=== PATIENT | female | born 1975 | race Caucasian/White ===

== ENCOUNTER 2016-05-02 14:41 | Emergency (ER) | payer MEDICAID, OTHER ==
[~2016-05-02 14:41] MED LIST: CALCTAB43 PO; CIPR500T3 PO; CLAR1TAB2 PO; COLA100C PO; FLUO40CA PO; IBUP400T OR; LIPI10TA PO; MOTR200T44 PO; NEUR600T PO; PERCOCET PO; PROA1AER INH; PROAAER IN; RANI15TA PO; ROXI1TAB2 PO; SING5CHW PO; TRAZ150T14 PO; TYLE325T5 PO; VITA50003 PO; ZANA4CAP OR; dulara INH
--- NOTE | 2016-05-02 16:01 | REP ---
Five view left knee series, 05/02/2016: Indication: Left knee pain. FINDINGS: There is no evidence of fracture, subluxation or dislocation within the left knee. The joint spaces are well maintained. There is no evidence of joint effusion. IMPRESSION: Unremarkable exam. Signed by Gia Clements MD 05/02/2016 09:03 P
[2016-05-02] MEDS ORDERED: NORCO, ANEXSIA 5/325MG TABLET (HYDROcodone/ACETAMINOPHEN) As Ordered ONE (17:58)
--- NOTE | 2016-05-02 18:42 | EDDOCDS ---
Nurse's Notes [facility] Name: Lisa García Age: 40 yrs Sex: Female : 1975 Arrival Date: 05/02/2016 Time: 14:41 Bed TR7 Private MD: Sandee Bhatia NP Diagnosis: Sprain of unspecified site of left knee Presentation: 05/02 14:56 Presenting complaint: Patient states: "I did something to my knee a few days ago. It jc4 feels like someone is ripping my knee and it perry and hurts to walk on". Complains of left knee pain. Adult Sepsis Screening: The patient does not have new or worsening altered mentation. Patient's respiratory rate is less than 22. Systolic blood pressure is greater than 100. Patient has a qSOFA score of 0- Negative Sepsis Screen. Suicide/Homicide risk assessment- the patient denies having any suicidal and/or homicidal ideations and does not present with any other emotional, behavioral or mental health complaints. Status: Patient is not a guest service aide or dependent. Transition of care: patient was not received from another setting of care. 14:56 Acuity: RICK Level 4 jc4 14:56 Method Of Arrival: Walkin/Carried/Asstd jc4 Triage Assessment: 14:59 General: Appears in no apparent distress. Pain: Pain currently is 10 out of 10 on a jc4 pain scale. HIV screening NA for this visit Offered previously. 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 Asmanex HFA 100 mcg/actuation inhalation HFAA 2 puffs 2 times per day (Last dose: 05/01/2016) 2. Flonase 50 mcg/actuation Nasal spsn 1 spray once daily (Last dose: 05/02/2016 05:30) 3. ProAir HFA 90 mcg/actuation inhalation HFAA 2 puffs every 6 hours as needed (Last dose: Unknown) 4. Zyrtec 10 mg Oral tab 1 tab once daily (Last dose: 05/01/2016) 5. Vitamin D Oral 29334 unit weekly (Last dose: 04/28/2016) 6. luvox 200 mg nightly (Last dose: 05/01/2016) - PMHx: Anxiety; Asthma; Depression; OCD; - PSHx: Appendectomy; Tubal ligation; Hysterectomy; Oophorectomy- bilateral; - Social history: Smoking status: Patient uses tobacco products, light tobacco smoker. No barriers to communication noted, The patient speaks fluent Trinidadian. - Family history: Not pertinent. - : The pt / caregiver states he / she is not on anticoagulants. Home medication list is obtained from the patient. - Exposure Risk Screening:: None identified. Screenin:13 Screening information is obtained from the patient. Fall risk: At risk due to injury. ms18 Assistance ADL's: requires no assistance with activities of daily living. Abuse/DV Screen: The patient / caregiver reports he/she is: not in a situation that causes fear, pain or injury. Nutritional screening: No deficits noted. Advance Directives: There is no living will. home support is adequate. Assessment: 15:30 General: Appears in no apparent distress, Behavior is cooperative, pleasant. jc4 Neurological: Level of Consciousness is awake, alert, Oriented to person, place, time. Respiratory: Airway is patent Respiratory effort is even, unlabored, Respiratory pattern is regular, symmetrical. Derm: Skin is pink, warm & dry. Musculoskeletal: Reports pain in left knee. 17:21 General: Pt ambulatory to Room 26 with limping gait. jc4 18:13 General: Appears in no apparent distress, obese, Behavior is appropriate for age, ms18 cooperative. Pain: Location: left knee Pain currently is 9 out of 10 on a pain scale. Neurological: No deficits noted. Respiratory: No deficits noted. Derm: Skin is pink, warm & dry. normal. Vital Signs: 14:43 BP 131 / 83; Pulse 93; Resp 18 S; Temp 98.6(O); Pulse Ox 97% on R/A; Weight 102.06 kg gr2 (R); Height 5 ft. 6 in. (167.64 cm) (R); Pain 8/10; 16:04 BP 119 / 62; Pulse 85; Resp 20; Temp 98.3(TE); Pulse Ox 97% on R/A; Pain 10/10; ar3 18:13 BP 123 / 63 RA Sitting (auto/lg); Pulse 79; Resp 20; Temp 98.5; Pulse Ox 99% on R/A; bnb Pain 9/10; 14:43 Body Mass Index 36.32 (102.06 kg, 167.64 cm) gr2 Vitals: 14:43 Log In Time: May 02, 2016 at 14:43. gr2 ED Course: 14:42 Patient visited by Eduardo Castro. gr2 14:42 Sandee Bhatia is Private Physician. gr2 14:42 Patient moved to Waiting gr2 14:44 Patient visited by Eduardo Castro. gr2 14:44 Patient moved to Pre RCE gr2 14:57 Triage Initiated jc4 16:06 Patient visited by Ivania Gupta PCA. ar3 16:40 Knee, Complete Returned. EDMS 17:15 Patient moved to PR jc4 17:16 Jo Ann Story [facility]-C [facility]. ef1 17:16 Kaylen Geiger MD is Attending Physician. ef1 17:16 Patient visited by Jo Ann Story PA-C. ef1 17:37 [facility]. ef1 17:39 [facility] Payment Agreement was scanned into [employer] and attached to record. gjb 18:13 The patient / caregiver is instructed regarding the plan of care and ED course. Patient ms18 has correct armband on for positive identification. Property sent home with patient. :Personal belongings accompany Pt. 18:13 No IV's were initiated during this patient's visit. No procedures done that require ms18 assistance. Crutch training done. Knee immobilizer applied on left knee. Patient with positive distal sensation and brisk distal capillary refill after application. 18:14 Patient visited by Clare Key PCA. bnb 18:19 Patient moved to TR7 bnb Administered Medications: 18:00 Drug: oxyCODONE-acetaminophen 1 tabs [oxycodone-acetaminophen 5 mg-325 mg tablet (1 ms18 tabs)] Route: PO; Order Results: Radiology Order: Knee, Complete Test: Knee, Complete REASON FOR EXAMINATION: left knee pain; Five view left knee series, 05/02/2016:; ; Indication: Left knee pain.; ; ; FINDINGS:; There is no evidence of fracture, subluxation or dislocation within the left; knee. The joint spaces are well maintained. There is no evidence of joint; effusion.; ; IMPRESSION:; Unremarkable exam.; ; ; ; ; ; Unreviewed; Outcome: 17:37 Discharge ordered by Provider. ef1 18:13 Discharge Assessment: Patient awake, alert and oriented x 3. No cognitive and/or ms18 functional deficits noted. Patient verbalized understanding of disposition instructions. patient administered narcotics - yes. Pt provided with safe discharge. The following High Risk Discharge criteria are identified: None. Discharged to home ambulatory, with crutches. Condition: good Condition: stable Condition: improved. Discharge instructions given to patient, Instructed on discharge instructions, follow up and referral plans. medication usage, no driving heavy equipment, Demonstrated understanding of instructions, medications, Pt was receptive of discharge instructions/ teaching. Prescriptions given X 2. No special radiology studies were completed. 18:41 Patient left the ED. ms18 Signatures: Dispatcher [employer] EDMS Jo Ann Story, FADUMO THORNE ef1 Ivania Gupta, GANG HEAD SAW OPERATOR GANG HEAD SAW OPERATOR ar3 Martha Wise RN RN jc4 Eduardo Castro gr2 Caridad Massey RN RN ms18 Mariama Torres Brittney, GANG HEAD SAW OPERATOR GANG HEAD SAW OPERATOR bnb JAZZY
--- NOTE | 2016-05-02 18:42 | EDDOCDS ---
Physician Documentation [facility] Name: Lisa García Age: 40 yrs Sex: Female : 1975 Arrival Date: 05/02/2016 Time: 14:41 Bed TR7 Private MD: Sandee Bhatia NP Disposition: 05/02/16 17:37 Discharged to Home/Self Care. Impression: Sprain of unspecified site of left knee. - Condition is Stable. - Discharge Instructions: Knee Sprain, [id number]. - Prescriptions for Mobic 7.5 mg Oral Tablet - take 1 tablet by ORAL route once daily take with food; 20 tablet. Percocet 5- 325 mg Oral Tablet - take 1 tablet by ORAL route every 6 hours As needed MDD: 4 tabs; 10 tablet. - Medication Reconciliation, Local Pharmacy Hours form. - Follow up: [facility]; When: 1 - 2 days; Reason: Further diagnostic work-up, Recheck today's complaints, Continuance of care. Follow up: Emergency Department; Reason: Worsening of conditions. - Problem is new. - Symptoms have improved. Historical: - Allergies: PENICILLINS; - Home Meds: 1. Asmanex HFA 100 mcg/actuation inhalation HFAA 2 puffs 2 times per day (Last dose: 05/01/2016) 2. Flonase 50 mcg/actuation Nasal spsn 1 spray once daily (Last dose: 05/02/2016 05:30) 3. ProAir HFA 90 mcg/actuation inhalation HFAA 2 puffs every 6 hours as needed (Last dose: Unknown) 4. Zyrtec 10 mg Oral tab 1 tab once daily (Last dose: 05/01/2016) 5. Vitamin D Oral 16784 unit weekly (Last dose: 04/28/2016) 6. luvox 200 mg nightly (Last dose: 05/01/2016) - PMHx: Anxiety; Asthma; Depression; OCD; - PSHx: Appendectomy; Tubal ligation; Hysterectomy; Oophorectomy- bilateral; - Social history: Smoking status: Patient uses tobacco products, light tobacco smoker. No barriers to communication noted, The patient speaks fluent Macedonian. - Family history: Not pertinent. - : The pt / caregiver states he / she is not on anticoagulants. Home medication list is obtained from the patient. - Exposure Risk Screening:: None identified. 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 6 in. (167.64 cm) (R); Pain 8/10; 16:04 BP 119 / 62; Pulse 85; Resp 20; Temp 98.3(TE); Pulse Ox 97% on R/A; Pain 10/10; ar3 18:13 BP 123 / 63 RA Sitting (auto/lg); Pulse 79; Resp 20; Temp 98.5; Pulse Ox 99% on R/A; bnb Pain 9/10; 14:43 Body Mass Index 36.32 (102.06 kg, 167.64 cm) gr2 Procedures: 17:34 Fracture care/splinting: Splint applied to left knee using knee immobilizer, applied by ef1 tech. Examined by me, post splint application: neurovascular intact, 2+ distal pulses palpable, brisk capillary refill noted, Patient tolerated well. MDM: 15:00 Knee, Complete Ordered. EDMS 17:34 Knee Immobilizer ordered. ef1 17:34 Crutches ordered. ef1 17:34 Ice Pack ordered. ef1 17:34 oxyCODONE-acetaminophen 5 mg-325 mg 1 tabs PO once ordered. ef1 17:39 Financial registration complete. gjb 17:39 [facility] Payment Agreement was scanned into [employer] and attached to record. gjb Administered Medications: 18:00 Drug: oxyCODONE-acetaminophen 1 tabs [oxycodone-acetaminophen 5 mg-325 mg tablet (1 ms18 tabs)] Route: PO; Signatures: Dispatcher [employer] EDMS Jo Ann Story PA-C PA-C ef1 Martha Wise RN RN jc4 Caridad Massey RN RN ms18 Mariama Torres The chart was reviewed and I authenticate all verbal orders and agree with the evaluation and treatment provided.Attachments: 17:39 [facility] Payment Agreement gjalesha MTDD
--- NOTE | 2016-05-04 19:42 | EDDOCDS ---
Physician Documentation [facility] Name: Lisa García Age: 40 yrs Sex: Female : 1975 Arrival Date: 05/02/2016 Time: 14:41 Bed TR7 Private MD: Sandee Bhatia NP Disposition: 05/02/16 17:37 Discharged to Home/Self Care. Impression: Sprain of unspecified site of left knee. - Condition is Stable. - Discharge Instructions: Knee Sprain, [id number]. - Prescriptions for Mobic 7.5 mg Oral Tablet - take 1 tablet by ORAL route once daily take with food; 20 tablet. Percocet 5- 325 mg Oral Tablet - take 1 tablet by ORAL route every 6 hours As needed MDD: 4 tabs; 10 tablet. - Medication Reconciliation, Local Pharmacy Hours form. - Follow up: [facility]; When: 1 - 2 days; Reason: Further diagnostic work-up, Recheck today's complaints, Continuance of care. Follow up: Emergency Department; Reason: Worsening of conditions. - Problem is new. - Symptoms have improved. Historical: - Allergies: PENICILLINS; - Home Meds: 1. Asmanex HFA 100 mcg/actuation inhalation HFAA 2 puffs 2 times per day (Last dose: 05/01/2016) 2. Flonase 50 mcg/actuation Nasal spsn 1 spray once daily (Last dose: 05/02/2016 05:30) 3. ProAir HFA 90 mcg/actuation inhalation HFAA 2 puffs every 6 hours as needed (Last dose: Unknown) 4. Zyrtec 10 mg Oral tab 1 tab once daily (Last dose: 05/01/2016) 5. Vitamin D Oral 54006 unit weekly (Last dose: 04/28/2016) 6. luvox 200 mg nightly (Last dose: 05/01/2016) - PMHx: Anxiety; Asthma; Depression; OCD; - PSHx: Appendectomy; Tubal ligation; Hysterectomy; Oophorectomy- bilateral; - Social history: Smoking status: Patient uses tobacco products, light tobacco smoker. No barriers to communication noted, The patient speaks fluent Greenlandic. - Family history: Not pertinent. - : The pt / caregiver states he / she is not on anticoagulants. Home medication list is obtained from the patient. - Exposure Risk Screening:: None identified. 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 6 in. (167.64 cm) (R); Pain 8/10; 16:04 BP 119 / 62; Pulse 85; Resp 20; Temp 98.3(TE); Pulse Ox 97% on R/A; Pain 10/10; ar3 18:13 BP 123 / 63 RA Sitting (auto/lg); Pulse 79; Resp 20; Temp 98.5; Pulse Ox 99% on R/A; bnb Pain 9/10; 14:43 Body Mass Index 36.32 (102.06 kg, 167.64 cm) gr2 Procedures: 17:34 Fracture care/splinting: Splint applied to left knee using knee immobilizer, applied by ef1 tech. Examined by me, post splint application: neurovascular intact, 2+ distal pulses palpable, brisk capillary refill noted, Patient tolerated well. MDM: 15:00 Knee, Complete Ordered. EDMS 17:34 Knee Immobilizer ordered. ef1 17:34 Crutches ordered. ef1 17:34 Ice Pack ordered. ef1 17:34 oxyCODONE-acetaminophen 5 mg-325 mg 1 tabs PO once ordered. formerly [facility] 17:39 Financial registration complete. [facility] 17:39 [facility] Payment Agreement was scanned into [email or web address] and attached to record. [facility] 05/03 09:11 T-Sheet-- Draft Copy was scanned into [email or web address] and attached to record. gb Administered Medications: 05/02 18:00 Drug: oxyCODONE-acetaminophen 1 tabs [oxycodone-acetaminophen 5 mg-325 mg tablet (1 ms18 tabs)] Route: PO; Signatures: Dispatcher [employer] EDMS Raissa Wells, Reg Reg gb Jo Ann Story, JUANC PARico ef1 Martha Wise RN RN jc4 Caridad Massey RN RN ms18 Mariama Torres [facility] The chart was reviewed and I authenticate all verbal orders and agree with the evaluation and treatment provided.Attachments: 17:39 [facility] Payment Agreement gjb 05/03 09:11 T-Sheet-- Draft Copy gb Chart Complete MTDD
--- NOTE | 2016-05-04 19:42 | EDDOCDS ---
Nurse's Notes [facility] Name: Lisa García Age: 40 yrs Sex: Female : 1975 Arrival Date: 05/02/2016 Time: 14:41 Bed TR7 Private MD: Sandee Bhatia NP Diagnosis: Sprain of unspecified site of left knee Presentation: 05/02 14:56 Presenting complaint: Patient states: "I did something to my knee a few days ago. It jc4 feels like someone is ripping my knee and it perry and hurts to walk on". Complains of left knee pain. Adult Sepsis Screening: The patient does not have new or worsening altered mentation. Patient's respiratory rate is less than 22. Systolic blood pressure is greater than 100. Patient has a qSOFA score of 0- Negative Sepsis Screen. Suicide/Homicide risk assessment- the patient denies having any suicidal and/or homicidal ideations and does not present with any other emotional, behavioral or mental health complaints. Status: Patient is not a district manager postal service or dependent. Transition of care: patient was not received from another setting of care. 14:56 Acuity: RICK Level 4 jc4 14:56 Method Of Arrival: Walkin/Carried/Asstd jc4 Triage Assessment: 14:59 General: Appears in no apparent distress. Pain: Pain currently is 10 out of 10 on a jc4 pain scale. HIV screening NA for this visit Offered previously. 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 Asmanex HFA 100 mcg/actuation inhalation HFAA 2 puffs 2 times per day (Last dose: 05/01/2016) 2. Flonase 50 mcg/actuation Nasal spsn 1 spray once daily (Last dose: 05/02/2016 05:30) 3. ProAir HFA 90 mcg/actuation inhalation HFAA 2 puffs every 6 hours as needed (Last dose: Unknown) 4. Zyrtec 10 mg Oral tab 1 tab once daily (Last dose: 05/01/2016) 5. Vitamin D Oral 16225 unit weekly (Last dose: 04/28/2016) 6. luvox 200 mg nightly (Last dose: 05/01/2016) - PMHx: Anxiety; Asthma; Depression; OCD; - PSHx: Appendectomy; Tubal ligation; Hysterectomy; Oophorectomy- bilateral; - Social history: Smoking status: Patient uses tobacco products, light tobacco smoker. No barriers to communication noted, The patient speaks fluent Finnish. - Family history: Not pertinent. - : The pt / caregiver states he / she is not on anticoagulants. Home medication list is obtained from the patient. - Exposure Risk Screening:: None identified. Screenin:13 Screening information is obtained from the patient. Fall risk: At risk due to injury. ms18 Assistance ADL's: requires no assistance with activities of daily living. Abuse/DV Screen: The patient / caregiver reports he/she is: not in a situation that causes fear, pain or injury. Nutritional screening: No deficits noted. Advance Directives: There is no living will. home support is adequate. Assessment: 15:30 General: Appears in no apparent distress, Behavior is cooperative, pleasant. jc4 Neurological: Level of Consciousness is awake, alert, Oriented to person, place, time. Respiratory: Airway is patent Respiratory effort is even, unlabored, Respiratory pattern is regular, symmetrical. Derm: Skin is pink, warm & dry. Musculoskeletal: Reports pain in left knee. 17:21 General: Pt ambulatory to Room 26 with limping gait. jc4 18:13 General: Appears in no apparent distress, obese, Behavior is appropriate for age, ms18 cooperative. Pain: Location: left knee Pain currently is 9 out of 10 on a pain scale. Neurological: No deficits noted. Respiratory: No deficits noted. Derm: Skin is pink, warm & dry. normal. Vital Signs: 14:43 BP 131 / 83; Pulse 93; Resp 18 S; Temp 98.6(O); Pulse Ox 97% on R/A; Weight 102.06 kg gr2 (R); Height 5 ft. 6 in. (167.64 cm) (R); Pain 8/10; 16:04 BP 119 / 62; Pulse 85; Resp 20; Temp 98.3(TE); Pulse Ox 97% on R/A; Pain 10/10; ar3 18:13 BP 123 / 63 RA Sitting (auto/lg); Pulse 79; Resp 20; Temp 98.5; Pulse Ox 99% on R/A; bnb Pain 9/10; 14:43 Body Mass Index 36.32 (102.06 kg, 167.64 cm) gr2 Vitals: 14:43 Log In Time: May 02, 2016 at 14:43. gr2 ED Course: 14:42 Patient visited by Eduardo Castro. gr2 14:42 Sandee Bhatia is Private Physician. gr2 14:42 Patient moved to Waiting gr2 14:44 Patient visited by Eduardo Castro. gr2 14:44 Patient moved to Pre RCE gr2 14:57 Triage Initiated jc4 16:06 Patient visited by Ivania Gupta PCA. ar3 16:40 Knee, Complete Returned. EDMS 17:15 Patient moved to PR jc4 17:16 Jo Ann Story PA-C is PHCP. ef1 17:16 Kaylen Geiger MD is Attending Physician. ef1 17:16 Patient visited by Jo Ann Story PA-C. ef1 17:37 [facility]. ef1 17:39 [facility] Payment Agreement was scanned into [employer] and attached to record. gjb 18:13 The patient / caregiver is instructed regarding the plan of care and ED course. Patient ms18 has correct armband on for positive identification. Property sent home with patient. :Personal belongings accompany Pt. 18:13 No IV's were initiated during this patient's visit. No procedures done that require ms18 assistance. Crutch training done. Knee immobilizer applied on left knee. Patient with positive distal sensation and brisk distal capillary refill after application. 18:14 Patient visited by Clare Key PCA. bnb 18:19 Patient moved to [facility] bn 05/03 09:11 T-Sheet-- Draft Copy was scanned into [employer] and attached to record. gb Administered Medications: 05/02 18:00 Drug: oxyCODONE-acetaminophen 1 tabs [oxycodone-acetaminophen 5 mg-325 mg tablet (1 ms18 tabs)] Route: PO; Order Results: Radiology Order: Knee, Complete Test: Knee, Complete REASON FOR EXAMINATION: left knee pain; Five view left knee series, 05/02/2016:; ; Indication: Left knee pain.; ; FINDINGS:; ; There is no evidence of fracture, subluxation or dislocation within the left; knee. The joint spaces are well maintained. There is no evidence of joint; effusion.; ; IMPRESSION:; ; Unremarkable exam.; ; ; Signed by; Gia Clements MD 05/02/2016 09:03 P; Outcome: 17:37 Discharge ordered by Provider. ef1 18:13 Discharge Assessment: Patient awake, alert and oriented x 3. No cognitive and/or ms18 functional deficits noted. Patient verbalized understanding of disposition instructions. patient administered narcotics - yes. Pt provided with safe discharge. The following High Risk Discharge criteria are identified: None. Discharged to home ambulatory, with crutches. Condition: good Condition: stable Condition: improved. Discharge instructions given to patient, Instructed on discharge instructions, follow up and referral plans. medication usage, no driving heavy equipment, Demonstrated understanding of instructions, medications, Pt was receptive of discharge instructions/ teaching. Prescriptions given X 2. No special radiology studies were completed. 18:41 Patient left the ED. ms18 Signatures: Dispatcher [employer] EDMS Raissa Wells, Mnig Reg gb Jo Ann Story, PA-C PA-C ef1 Ivania Gupta, JET MECHANIC JET MECHANIC ar3 Martha Wise, RN RN jc4 Eduardo Castro gr2 Caridad Massey,DELPHINE RN ms18 Mariama Torres Brittney, JET MECHANIC JET MECHANIC bnb Chart Complete MTDD
--- NOTE | 2016-05-04 19:42 | EDDOCDS ---
Physician Documentation [facility] Name: Lisa García Age: 40 yrs Sex: Female : 1975 Arrival Date: 05/02/2016 Time: 14:41 Bed TR7 Private MD: Sandee Bhatia NP Disposition: 05/02/16 17:37 Discharged to Home/Self Care. Impression: Sprain of unspecified site of left knee. - Condition is Stable. - Discharge Instructions: Knee Sprain, [id number]. - Prescriptions for Mobic 7.5 mg Oral Tablet - take 1 tablet by ORAL route once daily take with food; 20 tablet. Percocet 5- 325 mg Oral Tablet - take 1 tablet by ORAL route every 6 hours As needed MDD: 4 tabs; 10 tablet. - Medication Reconciliation, Local Pharmacy Hours form. - Follow up: [facility]; When: 1 - 2 days; Reason: Further diagnostic work-up, Recheck today's complaints, Continuance of care. Follow up: Emergency Department; Reason: Worsening of conditions. - Problem is new. - Symptoms have improved. Historical: - Allergies: PENICILLINS; - Home Meds: 1. Asmanex HFA 100 mcg/actuation inhalation HFAA 2 puffs 2 times per day (Last dose: 05/01/2016) 2. Flonase 50 mcg/actuation Nasal spsn 1 spray once daily (Last dose: 05/02/2016 05:30) 3. ProAir HFA 90 mcg/actuation inhalation HFAA 2 puffs every 6 hours as needed (Last dose: Unknown) 4. Zyrtec 10 mg Oral tab 1 tab once daily (Last dose: 05/01/2016) 5. Vitamin D Oral 05996 unit weekly (Last dose: 04/28/2016) 6. luvox 200 mg nightly (Last dose: 05/01/2016) - PMHx: Anxiety; Asthma; Depression; OCD; - PSHx: Appendectomy; Tubal ligation; Hysterectomy; Oophorectomy- bilateral; - Social history: Smoking status: Patient uses tobacco products, light tobacco smoker. No barriers to communication noted, The patient speaks fluent [place]. - Family history: Not pertinent. - : The pt / caregiver states he / she is not on anticoagulants. Home medication list is obtained from the patient. - Exposure Risk Screening:: None identified. 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 6 in. (167.64 cm) (R); Pain 8/10; 16:04 BP 119 / 62; Pulse 85; Resp 20; Temp 98.3(TE); Pulse Ox 97% on R/A; Pain 10/10; ar3 18:13 BP 123 / 63 RA Sitting (auto/lg); Pulse 79; Resp 20; Temp 98.5; Pulse Ox 99% on R/A; bnb Pain 9/10; 14:43 Body Mass Index 36.32 (102.06 kg, 167.64 cm) gr2 Procedures: 17:34 Fracture care/splinting: Splint applied to left knee using knee immobilizer, applied by ef1 tech. Examined by me, post splint application: neurovascular intact, 2+ distal pulses palpable, brisk capillary refill noted, Patient tolerated well. MDM: 15:00 Knee, Complete Ordered. EDMS 17:34 Knee Immobilizer ordered. ef1 17:34 Crutches ordered. ef1 17:34 Ice Pack ordered. ef1 17:34 oxyCODONE-acetaminophen 5 mg-325 mg 1 tabs PO once ordered. [facility] 17:39 Financial registration complete. [facility] 17:39 [facility] Payment Agreement was scanned into [employer] and attached to record. [facility] 05/03 09:11 T-Sheet-- Draft Copy was scanned into [employer] and attached to record. gb Administered Medications: 05/02 18:00 Drug: oxyCODONE-acetaminophen 1 tabs [oxycodone-acetaminophen 5 mg-325 mg tablet (1 ms18 tabs)] Route: PO; Signatures: Dispatcher [employer] EDMS Raissa Wells, Reg Reg gb Jo Ann Story, JUANC PARico ef1 Martha Wise RN RN jc4 Caridad Massey RN RN [id number] Mariama Torres [facility] The chart was reviewed and I authenticate all verbal orders and agree with the evaluation and treatment provided.Attachments: 17:39 [facility] Payment Agreement gjb 05/03 09:11 T-Sheet-- Draft Copy gb Chart Complete MTDD
== END 2016-05-02 18:41 | disposition home or self-care (01) ==
LOC: M ED 14:41
DX: S83.92XA Sprain of unspecified site of left knee, initial encounter (principal); F42.9 Obsessive-compulsive disorder, unspecified; F41.9 Anxiety disorder, unspecified; F32.9 Major depressive disorder, single episode, unspecified; J45.909 Unspecified asthma, uncomplicated; F17.210 Nicotine dependence, cigarettes, uncomplicated; Z88.0 Allergy status to penicillin; Z79.899 Other long term (current) drug therapy; X50.1XXA Overexertion from prolonged static or awkward postures, initial encounter; Y92.019 Unspecified place in single-family (private) house as the place of occurrence of the external cause; Y93.01 Activity, walking, marching and hiking; Y99.9 Unspecified external cause status

== ENCOUNTER → 2016-05-31 | Outpatient (REF) | payer OTHER ==
[2016-05-31 12:55] LABS: FREE T4 0.89 NG/DL (0.76-1.46)
== END | disposition home or self-care (01) ==
LOC: M SFHCPLAZ 08:38
PROVIDERS: ATTEND Nurse Practitioner Family
DX: E66.01 Morbid (severe) obesity due to excess calories (principal); E55.9 Vitamin D deficiency, unspecified

== ENCOUNTER 2016-12-30 03:08 | Emergency (ER) | payer MEDICAID, OTHER, SELFPAY ==
[~2016-12-30] VITALS: Ht 167.6 cm; Wt 80.0 kg
[~2016-12-30 03:08] MED LIST changes: -CALCTAB43 PO; +CALCTAB74 PO; -COLA100C PO; +COLA100C5 PO; -PROA1AER INH; +PROAAER10 INH; -TRAZ150T14 PO; +TRAZ1TAB14 PO; +VITA1CAP40 PO; -VITA50003 PO
[2016-12-30] MEDS ORDERED: ALBU17IN INH (03:24)
[2016-12-30] MEDS ORDERED: ASMA1AER3 IN (03:24)
[2016-12-30] MEDS ORDERED: [UNRECOGNIZED DRUG - OTHER] PO (03:24)
[2016-12-30] MEDS ORDERED: KETOROLAC 60 MG/2 ML VIAL (J1885) IM ONE (05:00)
[2016-12-30] MEDS ORDERED: AZIT-12 PO (06:13)
[2016-12-30] MEDS ORDERED: AZITHROMYCIN 250 MG TAB PO ONE (06:15)
[2016-12-30 06:18] VITALS: BP 121/79
--- NOTE | 2016-12-30 09:42 | REP ---
Clinical: Cough . Comparison: 06/18/2013 . Technique: PA and lateral. Findings: The mediastinum and cardiac silhouette are normal. The lung gramajo are clear and without acute consolidation, effusion, or pneumothorax. The skeletal structures are intact and normal. Impression: 1. No acute cardiopulmonary process. Signed by Dion Conte MD 12/30/2016 08:17 A
== END 2016-12-30 06:19 | disposition home or self-care (01) ==
LOC: M ED 03:08
DX: J20.9 Acute bronchitis, unspecified (principal); J45.909 Unspecified asthma, uncomplicated; F17.210 Nicotine dependence, cigarettes, uncomplicated; Z79.899 Other long term (current) drug therapy; J30.89 Other allergic rhinitis; Z88.0 Allergy status to penicillin; L23.1 Allergic contact dermatitis due to adhesives
CPT/HCPCS: 71020; 96372; 99282; J1885

== ENCOUNTER → 2017-01-03 | Outpatient (REF) | payer OTHER ==
[~2017-01-03] MED LIST changes: +ALBU17IN INH; +ASMA1AER3 IN; +AZIT-12 PO; +[UNRECOGNIZED DRUG - OTHER] PO
[2017-01-03 12:20] LABS: BASO % 0.4 % (0.0-1.0); EOS # 0.2 K/mm3 (0.0-0.50); EOS % 2.4 % (0.0-3.0); LARGE UNSTAINED CELL # 0.2 K/mm3 (0.0-0.4); LARGE UNSTAINED CELL % 1.9 % (0.0-4.0); LYMPH # 2.3 K/mm3 (1.5-4.5); LYMPH % 23.8 % (24.0-44.0); MEAN CORPUSCULAR HEMOGLOBIN 30.6 pg (27.0-33.0); MEAN CORPUSCULAR HGB CONC 33.7 g/dl (32.0-36.5); MEAN CORPUSCULAR VOLUME 90.8 fl (80.0-96.0); MONO # 0.4 K/mm3 (0.0-0.8); MONO % 4.4 % (0.0-5.0); NEUTROPHILS # 6.5 K/mm3 (1.8-7.7); NEUTROPHILS % 67.1 % (36.0-66.0); PLATELET COUNT, AUTOMATED 334 k/mm3 (150-450); RED CELL DISTRIBUTION WIDTH 13.4 % (11.5-14.5); WHITE BLOOD COUNT 9.7 K/mm3 (4.0-10.0)
== END ==
LOC: M SFHCPLAZ 10:05
PROVIDERS: ATTEND Physician Assistant Medical
DX: R06.02 Shortness of breath (principal)

== ENCOUNTER 2017-03-27 10:55 | Emergency (ER) | payer OTHER ==
[~2017-03-27] VITALS: Ht 167.6 cm; Wt 100.0 kg
[2017-03-27 10:56] VITALS: BP 134/73
--- NOTE | 2017-03-27 12:40 | REP ---
Left knee six views: Comparison is 05/02/2016. Left knee six views : There is no fracture or dislocation. Mineralization and joint spaces are normal. There are no calcifications or foreign bodies. Impression: Negative left knee . Signed by River Dixon MD 03/27/2017 12:31 P
[2017-03-27] MEDS ORDERED: IBUP-1022 PO (13:09)
== END 2017-03-27 13:17 | disposition home or self-care (01) ==
LOC: M ED 10:55
DX: S80.02XA Contusion of left knee, initial encounter (principal); W20.8XXA Other cause of strike by thrown, projected or falling object, initial encounter; Y92.9 Unspecified place or not applicable; Y93.9 Activity, unspecified; Y99.0 Civilian activity done for income or pay; G40.909 Epilepsy, unspecified, not intractable, without status epilepticus; J45.909 Unspecified asthma, uncomplicated; G47.30 Sleep apnea, unspecified; F17.200 Nicotine dependence, unspecified, uncomplicated; Z79.899 Other long term (current) drug therapy; Z91.040 Latex allergy status; Z91.89 Other specified personal risk factors, not elsewhere classified; Z88.0 Allergy status to penicillin

== ENCOUNTER 2017-12-10 13:19 | Emergency (ER) | payer OTHER ==
[2017-12-10] MEDS: ACETAMINOPHEN TAB 650MG DOSE (2X325MG) PO (15:03)
== END 2017-12-10 15:48 | disposition home or self-care (01) ==
LOC: M ED 13:19
DX: F45.0 Somatization disorder (principal); F42.9 Obsessive-compulsive disorder, unspecified; F17.210 Nicotine dependence, cigarettes, uncomplicated; Z91.048 Other nonmedicinal substance allergy status; Z91.040 Latex allergy status; Z88.0 Allergy status to penicillin
CPT/HCPCS: 99284

== ENCOUNTER 2017-12-15 16:49 | Emergency (ER) | payer OTHER ==
[2017-12-15] MEDS: NORCO, ANEXSIA 5/325MG TABLET (HYDROcodone/ACETAMINOPHEN) PO (17:28)
== END 2017-12-15 18:01 | disposition home or self-care (01) ==
LOC: M ED 18:01
DX: S60.211A Contusion of right wrist, initial encounter (principal); W22.09XA Striking against other stationary object, initial encounter; Y92.59 Other trade areas as the place of occurrence of the external cause; Y99.0 Civilian activity done for income or pay; K21.9 Gastro-esophageal reflux disease without esophagitis; M51.9 Unspecified thoracic, thoracolumbar and lumbosacral intervertebral disc disorder; F17.210 Nicotine dependence, cigarettes, uncomplicated; Z91.048 Other nonmedicinal substance allergy status; Z91.040 Latex allergy status; Z88.0 Allergy status to penicillin
CPT/HCPCS: 73110

== ENCOUNTER 2018-02-25 05:19 | Emergency (ER) | payer OTHER ==
[~2018-02-25] VITALS: Ht 167.6 cm; Wt 90.9 kg
[~2018-02-25 05:19] MED LIST changes: +IBUP-1022 PO; +IBUP80TA PO; +NORC1TAB4 PO; -VITA1CAP40 PO; +VITA50005 PO
[2018-02-25] MEDS ORDERED: ARNU1INH (05:29)
[2018-02-25] MEDS ORDERED: KETOROLAC 60 MG/2 ML VIAL (J1885) IM ONE (06:00)
[2018-02-25] MEDS ORDERED: METHOCARBAMOL 750 MG TAB PO ONE (06:00)
[2018-02-25] MEDS ORDERED: NAPR-885 PO (06:33)
[2018-02-25] MEDS ORDERED: ROBA500T PO (06:34)
[2018-02-25 06:39] VITALS: BP 132/91
[2018-02-25] MEDS ORDERED: NORCO, ANEXSIA 5/325MG TABLET (HYDROcodone/ACETAMINOPHEN) PO ONE (06:45)
== END 2018-02-25 06:46 | disposition home or self-care (01) ==
LOC: M ED 05:19
DX: S29.002A Unspecified injury of muscle and tendon of back wall of thorax, initial encounter (principal); V40.5XXA Car driver injured in collision with pedestrian or animal in traffic accident, initial encounter; Y92.410 Unspecified street and highway as the place of occurrence of the external cause; F33.9 Major depressive disorder, recurrent, unspecified; F41.9 Anxiety disorder, unspecified; G47.33 Obstructive sleep apnea (adult) (pediatric); F42.9 Obsessive-compulsive disorder, unspecified; K21.9 Gastro-esophageal reflux disease without esophagitis; G43.909 Migraine, unspecified, not intractable, without status migrainosus; Z88.0 Allergy status to penicillin; Z91.040 Latex allergy status; Z91.048 Other nonmedicinal substance allergy status; J30.89 Other allergic rhinitis; F17.210 Nicotine dependence, cigarettes, uncomplicated
CPT/HCPCS: 96372; 99283; J1885

== ENCOUNTER 2018-06-09 09:49 | Emergency (ER) | payer OTHER ==
[~2018-06-09] VITALS: Ht 167.6 cm; Wt 86.4 kg
[~2018-06-09 09:49] MED LIST changes: +ARNU1INH; +NAPR-885 PO; +ROBA500T PO
[2018-06-09] MEDS ORDERED: IBUP-1022 PO (09:56)
[2018-06-09] MEDS ORDERED: NORCO, ANEXSIA 5/325MG TABLET (HYDROcodone/ACETAMINOPHEN) PO ONE (10:45)
--- NOTE | 2018-06-09 11:27 | REP ---
Right wrist four views : There is no fracture or dislocation. Mineralization and joint spaces are normal. There are no calcifications or foreign bodies. Impression: Negative right wrist . Electronically Signed by River Dixon MD 06/09/2018 11:18 A
--- NOTE | 2018-06-09 11:28 | REP ---
Right hand four views : There is no fracture or dislocation. Mineralization and joint spaces are normal. There are no calcifications or foreign bodies. Impression: Negative right hand . Electronically Signed by River Dixon MD 06/09/2018 11:19 A
[2018-06-09 11:47] VITALS: BP 138/80
[2018-06-09 12:05] LABS: HEMATOCRIT 42.2 % (36.0-47.0); HEMOGLOBIN 14.2 g/dl (12.0-15.5); MEAN CORPUSCULAR HEMOGLOBIN 30.7 pg (27.0-33.0); MEAN CORPUSCULAR HGB CONC 33.6 g/dl (32.0-36.5); MEAN CORPUSCULAR VOLUME 91.3 fl (80.0-96.0); PLATELET COUNT, AUTOMATED 335 10^3/uL (150-450); RED BLOOD COUNT 4.62 10^6/uL (4.00-5.40); WHITE BLOOD COUNT 11.3 10^3/uL (4.0-10.0)
[2018-06-09 12:29] LABS: ERYTHROCYTE SEDIMENTATION RATE 20 mm/hr (0-20)
[2018-06-09] MEDS ORDERED: CODE30TA3 PO (13:05)
[2018-06-09] MEDS ORDERED: COLC1TAB13 PO (13:05)
--- NOTE | 2018-06-09 16:41 | REP ---
Right upper extremity deep vein duplex ultrasound: The deep veins demonstrate normal compression, normal Doppler color flow and normal Doppler waveforms with respiration and augmentation from the popliteal vein to the common femoral vein. Impression: There is no right upper extremity deep vein thrombus. Electronically Signed by River Dixon MD 06/09/2018 04:32 P
[2018-06-24] MEDS ORDERED: IBUP-1022 PO (20:20)
[2018-06-24] MEDS ORDERED: HYDR-3363 PO (21:37)
[2018-06-24] MEDS ORDERED: NAPR-50 PO (21:37)
== END 2018-06-09 13:16 | disposition home or self-care (01) ==
LOC: M ED 09:49
DX: M10.9 Gout, unspecified (principal); G43.909 Migraine, unspecified, not intractable, without status migrainosus; J45.909 Unspecified asthma, uncomplicated; G47.30 Sleep apnea, unspecified; K21.9 Gastro-esophageal reflux disease without esophagitis; F41.9 Anxiety disorder, unspecified; F32.9 Major depressive disorder, single episode, unspecified; M54.9 Dorsalgia, unspecified; M51.9 Unspecified thoracic, thoracolumbar and lumbosacral intervertebral disc disorder; F42.9 Obsessive-compulsive disorder, unspecified; J30.2 Other seasonal allergic rhinitis; Z72.0 Tobacco use; Z79.899 Other long term (current) drug therapy; Z88.0 Allergy status to penicillin; Z91.89 Other specified personal risk factors, not elsewhere classified; Z91.040 Latex allergy status

== ENCOUNTER 2018-07-24 22:21 | Emergency (ER) | payer MEDICAID, OTHER, SELFPAY ==
[~2018-07-24] VITALS: Ht 167.6 cm; Wt 86.4 kg
[2018-07-24 22:21] VITALS: BP 131/77
[~2018-07-24 22:21] MED LIST changes: +ACET300T47 PO; +COLC1TAB13 PO; +HYDR-3363 PO; +NAPR-837 PO; -NORC1TAB4 PO; +NORC1TAB7 PO; +OXYC1TAB23 PO; -PERCOCET PO
== END 2018-07-25 00:02 | disposition left against medical advice (07) ==
LOC: M ED 22:21
DX: Z53.21 Procedure and treatment not carried out due to patient leaving prior to being seen by health care provider (principal)

== ENCOUNTER → 2018-07-25 | Outpatient (REF) | payer OTHER ==
[2018-07-25 16:45] LABS: BASO # 0.1 10^3/uL (0.0-0.2); BASO % 0.4 % (0.0-1.0); EOS # 0.2 10^3/uL (0.0-0.50); EOS % 1.6 % (0.0-3.0); HEMOGLOBIN 14.4 g/dl (12.0-15.5); HEMOGLOBIN A1c 5.8 %; LYMPH # 3.6 10^3/uL (1.5-4.5); LYMPH % 26.6 % (24.0-44.0); MEAN CORPUSCULAR HEMOGLOBIN 30.4 pg (27.0-33.0); MEAN CORPUSCULAR VOLUME 94.9 fl (80.0-96.0); MONO # 0.7 10^3/uL (0.0-0.8); NEUTROPHILS # 8.8 10^3/uL (1.8-7.7); PLATELET COUNT, AUTOMATED 372 10^3/uL (150-450); RED BLOOD COUNT 4.74 10^6/uL (4.00-5.40); WHITE BLOOD COUNT 13.4 10^3/uL (4.0-10.0)
[2018-07-25 16:55] LABS: ALBUMIN 3.8 GM/DL (3.2-5.2); ALT/SGPT 17 U/L (12-78); BILIRUBIN,TOTAL 0.3 MG/DL (0.2-1.0); BLOOD UREA NITROGEN 11 MG/DL (7-18); C REACTIVE PROTEIN QUANTITATIV < 0.30 MG/DL (0.00-0.30); CARBON DIOXIDE LEVEL 28 MEQ/L (21-32); CHLORIDE LEVEL 107 MEQ/L (98-107); CREATININE FOR GFR 0.63 MG/DL (0.55-1.30); GLOMERULAR FILTRATION RATE > 60.0 (>58); GLUCOSE, FASTING 75 MG/DL (70-100); POTASSIUM SERUM 4.5 MEQ/L (3.5-5.1); RHEUMATOID FACTOR QUANT < 10.0 IU/ML (<15.0); SODIUM LEVEL 140 MEQ/L (136-145); TOTAL PROTEIN 6.7 GM/DL (6.4-8.2)
[2018-07-25 17:04] LABS: FOLATE 5.8 NG/ML (>5.4); VITAMIN B12 LEVEL 249 PG/ML (247-911)
[2018-07-25 18:37] LABS: ERYTHROCYTE SEDIMENTATION RATE 11 mm/hr (0-20)
[2018-07-29 00:06] LABS: ANA (HEP2) Negative (.)
== END ==
LOC: M SFHCPLAZ 14:39
PROVIDERS: ATTEND Physician Assistant
DX: G62.9 Polyneuropathy, unspecified (principal); L81.9 Disorder of pigmentation, unspecified

== ENCOUNTER 2018-08-15 16:49 | Emergency (ER) | payer MEDICAID, OTHER ==
[~2018-08-15] VITALS: Ht 167.6 cm; Wt 90.9 kg
[2018-08-15] MEDS ORDERED: NAPR-885 PO (16:55)
[2018-08-15] MEDS ORDERED: AMLO5TAB6 (16:55)
[2018-08-15] MEDS ORDERED: KETOROLAC 60 MG/2 ML VIAL (J1885) IM ONE (17:30)
[2018-08-15] MEDS ORDERED: METHOCARBAMOL 500 MG TAB PO ONE (17:30)
--- NOTE | 2018-08-15 18:39 | REP ---
LEFT SHOULDER, THREE VIEWS: HISTORY: Shoulder pain. There is no acute fracture or dislocation. The joint spaces are normal in appearance. IMPRESSION:There is no acute fracture or dislocation. Electronically Signed by Jacob Galarza MD 08/15/2018 06:51 P
--- NOTE | 2018-08-15 18:40 | REP ---
LEFT CLAVICLE, TWO VIEWS: HISTORY: Clavicle pain. There is no acute fracture or dislocation. The joint spaces are normal in appearance. IMPRESSION:There is no acute fracture or dislocation. Electronically Signed by Jacob Galarza MD 08/15/2018 06:51 P
--- NOTE | 2018-08-15 18:41 | REP ---
CERVICAL SPINE, EIGHT VIEWS: HISTORY: Left neck pain. The cervical spine is visualized from C1 to C6 in the lateral radiographs. There is no acute fracture or subluxation. The intervertebral discs are normal in height. The neural foramina are patent. IMPRESSION:There is no acute fracture or subluxation. Electronically Signed by Jacob Galarza MD 08/15/2018 06:51 P
--- NOTE | 2018-08-15 18:42 | REP ---
LUMBAR SPINE, FIVE VIEWS: HISTORY: Left shoulder pain. COMPARISON: 08/08/2011 There is no acute fracture or subluxation. The L3-4 and L4-5 intervertebral discs are decreased in height consistent with disc degeneration. Osteophytes are present on L1 through 4. The facet joints are normal in appearance. IMPRESSION:Degenerative change as described above. Electronically Signed by Jacob Galarza MD 08/15/2018 06:51 P
[2018-08-15] MEDS ORDERED: NAPR-837 PO (18:59)
[2018-08-15] MEDS ORDERED: VOLT1GEL15 TOP (18:59)
[2018-08-15] MEDS ORDERED: ROBA500T PO (18:59)
[2018-08-15 19:10] VITALS: BP 122/73
== END 2018-08-15 19:16 | disposition home or self-care (01) ==
LOC: M ED 16:49
DX: S13.4XXA Sprain of ligaments of cervical spine, initial encounter (principal); M54.5 Low back pain; M51.36 Other intervertebral disc degeneration, lumbar region; V43.52XA Car driver injured in collision with other type car in traffic accident, initial encounter; Y92.9 Unspecified place or not applicable; Y93.9 Activity, unspecified; Y99.9 Unspecified external cause status; J45.909 Unspecified asthma, uncomplicated; J30.2 Other seasonal allergic rhinitis; Z79.899 Other long term (current) drug therapy; Z88.0 Allergy status to penicillin; Z91.89 Other specified personal risk factors, not elsewhere classified; Z91.040 Latex allergy status
CPT/HCPCS: 72052; 72110; 73000; 73030; 96374; 99283; J1885

== ENCOUNTER → 2018-09-27 | Outpatient (REF) | payer OTHER ==
[~2018-09-27] MED LIST changes: +AMLO5TAB6; +VOLT1GEL15 TOP
== END ==
LOC: M SFHCPLAZ 09:41
PROVIDERS: ATTEND Family Medicine
DX: M13.0 Polyarthritis, unspecified (principal)

== ENCOUNTER 2018-11-11 18:12 | Emergency (ER) | payer MEDICAID, OTHER ==
[~2018-11-11] VITALS: Ht 167.6 cm; Wt 90.2 kg
[2018-11-11] MEDS ORDERED: LORA1TAB12 (18:22)
[2018-11-11] MEDS ORDERED: ESCI10TA2 (18:22)
[2018-11-11] MEDS ORDERED: VERA40TA (18:22)
[2018-11-11] MEDS ORDERED: ULTR50TA8 PO (19:59)
[2018-11-11] MEDS ORDERED: NAPR-837 PO (19:59)
[2018-11-11] MEDS ORDERED: ACETAMINOPHEN TAB 650MG DOSE (2X325MG) PO ONE (20:00)
[2018-11-11] MEDS ORDERED: traMADol 50 MG TAB PO ONE (20:00)
[2018-11-11 20:24] VITALS: BP 120/67
--- NOTE | 2018-11-14 16:53 | REP ---
Left knee five views : There is no fracture or dislocation. Mineralization and joint spaces are normal. There are no calcifications or foreign bodies. Impression: Negative left knee . Electronically Signed by River Dixon MD 11/12/2018 07:11 A
== END 2018-11-11 20:30 | disposition home or self-care (01) ==
LOC: M ED 18:12
DX: M23.92 Unspecified internal derangement of left knee (principal); Y99.0 Civilian activity done for income or pay; Z79.51 Long term (current) use of inhaled steroids; Z79.899 Other long term (current) drug therapy; Z88.0 Allergy status to penicillin; Z91.040 Latex allergy status; Z91.048 Other nonmedicinal substance allergy status

== ENCOUNTER 2018-12-23 18:31 | Emergency (ER) | payer MEDICAID, OTHER ==
[~2018-12-23] VITALS: Ht 167.6 cm; Wt 81.8 kg
[~2018-12-23 18:31] MED LIST changes: +ESCI10TA2; +LORA1TAB12 PO; +ULTR50TA8 PO; +VERA40TA
[2018-12-23] MEDS ORDERED: ARNU1INH PO (18:42)
[2018-12-23 19:11] LABS: BASO # 0.1 10^3/uL (0.0-0.2); BASO % 0.5 % (0.0-1.0); EOS # 0.2 10^3/uL (0.0-0.5); HEMATOCRIT 42.4 % (36.0-47.0); HEMOGLOBIN 14.1 g/dl (12.0-15.5); LYMPH % 37.8 % (24.0-44.0); MEAN CORPUSCULAR HEMOGLOBIN 31.4 pg (27.0-33.0); MEAN CORPUSCULAR HGB CONC 33.3 g/dl (32.0-36.5); MEAN CORPUSCULAR VOLUME 94.4 fl (80.0-96.0); MONO # 0.6 10^3/uL (0.0-0.8); MONO % 5.9 % (0.0-5.0); NEUTROPHILS # 5.6 10^3/uL (1.5-8.5); NEUTROPHILS % 53.4 % (36.0-66.0); PLATELET COUNT, AUTOMATED 336 10^3/uL (150-450); RED BLOOD COUNT 4.49 10^6/uL (4.00-5.40); WHITE BLOOD COUNT 10.4 10^3/uL (4.0-10.0)
[2018-12-23] MEDS: MORPHINE 2 MG/ML 1ML SYRINGE (J2270) IV ONE (19:38)
[2018-12-23 19:39] LABS: BLOOD UREA NITROGEN 15 MG/DL (7-18); CALCIUM LEVEL 8.8 MG/DL (8.5-10.1); CARBON DIOXIDE LEVEL 29 MEQ/L (21-32); CHLORIDE LEVEL 108 MEQ/L (98-107); CK-MB VALUE MASS < 1.0 NG/ML (<3.6); CPK CREATINE PHOSPHOKINASE 73 U/L (26-192); GLOMERULAR FILTRATION RATE > 60.0 (>58); GLUCOSE, FASTING 91 MG/DL (70-100); MB/CK RELATIVE INDEX 1.37 (< OR =4); POTASSIUM SERUM 4.3 MEQ/L (3.5-5.1); SODIUM LEVEL 143 MEQ/L (136-145); TROPONIN I < 0.02 NG/ML (< 0.10)
--- NOTE | 2018-12-23 20:44 | ECGEPIP ---
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
[2018-12-23] MEDS: GI COCKTAIL 50ML BTL(HYOSCYAMINE/MAALOX/LIDOCAINE VISCOUS)(1:3:1) PO ONE (22:16)
--- NOTE | 2018-12-23 22:26 | REPVR ---
EXAM: CT Head Without Contrast EXAM DATE/TIME: 12/23/18 (9:34pm) CLINICAL HISTORY: 43 year old female with headache TECHNIQUE: Imaging protocol: Computed tomography of the head without contrast. Radiation optimization: All CT scans at this facility use at least one of these dose optimization techniques: automated exposure control; mA and/or kV adjustment per patient size (includes targeted exams where dose is matched to clinical indication); or iterative reconstruction. COMPARISON: No relevant prior studies available FINDINGS: Brain: Unremarkable. No acute hemorrhage. Unremarkable white matter. No mass effect. Ventricles: Normal. No ventriculomegaly. Bones/joints: Unremarkable. No acute fracture. Sinuses: Visualized sinuses are unremarkable. No air-fluid levels. Mastoid air cells: Visualized mastoid air cells are well aerated. Soft tissues: Unremarkable. IMPRESSION: No acute intracranial pathology is appreciated. Electronically signed by: Dalia Spring On 12/23/2018 22:25:23 PM
[2018-12-23 22:50] LABS: CK-MB VALUE MASS < 1.0 NG/ML (<3.6); CPK CREATINE PHOSPHOKINASE 66 U/L (26-192); MB/CK RELATIVE INDEX 1.52 (< OR =4); TROPONIN I < 0.02 NG/ML (< 0.10)
[2018-12-23 23:30] VITALS: BP 101/57
--- NOTE | 2018-12-24 08:16 | REP ---
PORTABLE CHEST X-RAY, 6:49 p.m. 12/23/2018: HISTORY: Chest pain. Preliminary report is provided by Dr. Conte. The lungs are well inflated and clear. The pleural angles are sharp. Heart size is normal and unchanged from comparison study 06/24/2018. Pulmonary vasculature is not increased. IMPRESSION: No acute disease. Electronically Signed by Dinesh Montano MD 12/24/2018 09:34 A
--- NOTE | 2018-12-25 07:02 | ECGEPIP ---
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
== END 2018-12-23 23:52 | disposition home or self-care (01) ==
LOC: M ED 18:31
DX: R07.89 Other chest pain (principal); R00.2 Palpitations; R51 Headache; F32.9 Major depressive disorder, single episode, unspecified; F42.9 Obsessive-compulsive disorder, unspecified; G47.33 Obstructive sleep apnea (adult) (pediatric); F17.210 Nicotine dependence, cigarettes, uncomplicated; Z88.0 Allergy status to penicillin; Z91.040 Latex allergy status; Z91.048 Other nonmedicinal substance allergy status; Z79.899 Other long term (current) drug therapy
CPT/HCPCS: 36415; 70450; 71045; 80048; 82550; 82553; 85025; 85379; 93005; 93041; 94760; 96374; 99285; J2270

== ENCOUNTER → 2019-04-24 | Outpatient (REF) | payer OTHER ==
[~2019-04-24] MED LIST changes: +ARNU1INH PO
[2019-04-24 12:23] LABS: HEMATOCRIT 45.7 % (36.0-47.0); HEMOGLOBIN 14.9 g/dl (12.0-15.5); MEAN CORPUSCULAR HEMOGLOBIN 30.6 pg (27.0-33.0); MEAN CORPUSCULAR HGB CONC 32.6 g/dl (32.0-36.5); MEAN CORPUSCULAR VOLUME 93.8 fl (80.0-96.0); PLATELET COUNT, AUTOMATED 309 10^3/uL (150-450); RED BLOOD COUNT 4.87 10^6/uL (4.00-5.40); WHITE BLOOD COUNT 12.7 10^3/uL (4.0-10.0)
[2019-04-24 12:29] LABS: ALBUMIN 3.6 GM/DL (3.2-5.2); ALT/SGPT 14 U/L (12-78); BILIRUBIN,TOTAL 0.4 MG/DL (0.2-1.0); BLOOD UREA NITROGEN 13 MG/DL (7-18); CALCIUM LEVEL 9.1 MG/DL (8.5-10.1); CARBON DIOXIDE LEVEL 28 MEQ/L (21-32); CHLORIDE LEVEL 106 MEQ/L (98-107); CREATININE FOR GFR 0.83 MG/DL (0.55-1.30); GLOMERULAR FILTRATION RATE > 60.0 (>58); GLUCOSE, FASTING 88 MG/DL (70-100); POTASSIUM SERUM 4.1 MEQ/L (3.5-5.1); SODIUM LEVEL 141 MEQ/L (136-145)
[2019-04-24 12:34] LABS: INR 0.93; PROTHROMBIN TIME 12.2 SECONDS (11.8-14.0)
[2019-04-24 12:35] LABS: PARTIAL THROMBOPLASTIN TIME 30.3 SECONDS (25.0-38.4)
== END ==
LOC: M SFHCPLAZ 10:21
PROVIDERS: ATTEND Physician Assistant
DX: Z01.818 Encounter for other preprocedural examination (principal)

== ENCOUNTER 2019-09-12 16:02 | Emergency (ER) | payer MEDICAID, OTHER ==
[~2019-09-12 16:02] MED LIST changes: -LORA1TAB12 PO; +LORA1TAB4 PO
[2019-09-12] MEDS ORDERED: tylenol 2 tabs (16:14)
[2019-09-12] MEDS ORDERED: ADVIL (16:14)
[2019-09-12] MEDS ORDERED: PERCOCET 5MG/325MG TAB PO ONE (18:15)
[2019-09-12] MEDS ORDERED: DICL75TA PO (20:33)
[2019-09-12 20:44] VITALS: BP 131/69
[2019-09-12] MEDS ORDERED: MELO15TA28 PO (21:14)
--- NOTE | 2019-09-13 08:46 | REP ---
Left upper extremity duplex venous ultrasound: History: Left arm swelling and pain. Rule out DVT. Preliminary report is provided at the time of the exam by pool WHIPPLE. Findings: The left internal jugular, axillary, brachial, basilic, and cephalic veins are anechoic and compressible in the left upper extremity. Color flow imaging is homogeneous. Spectral Doppler interrogation is unremarkable. There is no evidence of left upper extremity venous thrombosis. Impression: Negative left upper extremity duplex venous ultrasound. No evidence of venous thrombosis. Electronically Signed by Dinesh Montano MD 09/13/2019 08:37 A
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
== END 2019-09-12 20:48 | disposition home or self-care (01) ==
LOC: M ED 16:02
DX: M77.12 Lateral epicondylitis, left elbow (principal); J45.909 Unspecified asthma, uncomplicated; G43.909 Migraine, unspecified, not intractable, without status migrainosus; K21.9 Gastro-esophageal reflux disease without esophagitis; G47.33 Obstructive sleep apnea (adult) (pediatric); F42.9 Obsessive-compulsive disorder, unspecified; F41.9 Anxiety disorder, unspecified; F32.9 Major depressive disorder, single episode, unspecified; F17.210 Nicotine dependence, cigarettes, uncomplicated; Z88.0 Allergy status to penicillin; Z91.040 Latex allergy status; Z91.09 Other allergy status, other than to drugs and biological substances; Z79.899 Other long term (current) drug therapy

== ENCOUNTER → 2019-09-25 | Outpatient (REF) | payer OTHER ==
[~2019-09-25] MED LIST changes: +ADVIL; +DICL75TA PO; +MELO15TA28 PO; +tylenol 2 tabs
[2019-09-25 14:12] LABS: HEMOGLOBIN 15.1 g/dl (12.0-15.5); MEAN CORPUSCULAR HEMOGLOBIN 30.4 pg (27.0-33.0); MEAN CORPUSCULAR HGB CONC 32.8 g/dl (32.0-36.5); MEAN CORPUSCULAR VOLUME 92.7 fl (80.0-96.0); PLATELET COUNT, AUTOMATED 341 10^3/uL (150-450); RED BLOOD COUNT 4.96 10^6/uL (4.00-5.40); WHITE BLOOD COUNT 7.7 10^3/uL (4.0-10.0)
[2019-09-25 14:31] LABS: HEMOGLOBIN A1c 5.6 %
[2019-09-25 14:40] LABS: ERYTHROCYTE SEDIMENTATION RATE 18 mm/hr (0-20)
[2019-09-25 14:48] LABS: ALBUMIN 3.6 GM/DL (3.2-5.2); ALT/SGPT 17 U/L (12-78); BILIRUBIN,TOTAL 0.4 MG/DL (0.2-1.0); BLOOD UREA NITROGEN 14 MG/DL (7-18); C REACTIVE PROTEIN QUANTITATIV 0.35 MG/DL (0.00-0.30); CALCIUM LEVEL 9.2 MG/DL (8.5-10.1); CARBON DIOXIDE LEVEL 27 MEQ/L (21-32); CHLORIDE LEVEL 107 MEQ/L (98-107); CHOLESTEROL LEVEL 239 MG/DL (<200); CHOLESTEROL RISK RATIO 5.975 (<5); CREATININE FOR GFR 0.72 MG/DL (0.55-1.30); FOLATE 5.5 NG/ML; GLOMERULAR FILTRATION RATE > 60.0 (>58); GLUCOSE, FASTING 81 MG/DL (70-100); HDL CHOLESTEROL 40 MG/DL (>40); LDL CHOLESTEROL 174 MG/DL (<100); MAGNESIUM LEVEL 2.4 MG/DL (1.8-2.4); NON-HDL-C 199 MG/DL; POTASSIUM SERUM 4.6 MEQ/L (3.5-5.1); RHEUMATOID FACTOR QUANT < 10.0 IU/ML (<15.0); SODIUM LEVEL 138 MEQ/L (136-145); TOTAL PROTEIN 6.8 GM/DL (6.4-8.2); TRIGLYCERIDES LEVEL 124 MG/DL (<150); VITAMIN B12 LEVEL 255 PG/ML
[2019-09-26 14:08] LABS: ANTINUCLEAR ANTIBODIES DIRECT Negative (Negative)
== END ==
LOC: M SFHCPLAZ 10:26
PROVIDERS: ATTEND Family Medicine
DX: R20.0 Anesthesia of skin (principal); Z13.1 Encounter for screening for diabetes mellitus; Z13.220 Encounter for screening for lipoid disorders

== ENCOUNTER 2020-01-25 16:12 | Emergency (ER) | payer OTHER ==
[~2020-01-25] VITALS: Ht 167.6 cm; Wt 102.0 kg
[~2020-01-25 16:12] MED LIST changes: +AMLO1TAB24; -AMLO5TAB6
[2020-01-25] MEDS ORDERED: ESCI10TA2 (16:20)
[2020-01-25] MEDS ORDERED: IBUP-1022 PO (16:27)
[2020-01-25] MEDS ORDERED: diazePAM 10 MG TAB PO ONE (16:45)
[2020-01-25] MEDS ORDERED: LIDOCAINE 5% (LIDODERM) PATCH TD ONE (16:45)
[2020-01-25] MEDS ORDERED: KETOROLAC 60MG 2ML VIAL IM ONE (16:45)
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
[2020-01-25 18:01] VITALS: BP 137/76
[2020-01-25] MEDS ORDERED: NAPR-837 PO (18:03)
[2020-01-25] MEDS ORDERED: ROBA750T4 PO (18:03)
[2020-01-25] MEDS ORDERED: NORCO 5/325MG TABLET (BULK FOR ED) PO ONE (18:15)
[2020-01-25] MEDS ORDERED: **NOTE PATIENT COMMENT** MISC XX SCH (21:00)
== END 2020-01-25 18:19 | disposition home or self-care (01) ==
LOC: M ED 16:12
DX: S29.012A Strain of muscle and tendon of back wall of thorax, initial encounter (principal); S39.012A Strain of muscle, fascia and tendon of lower back, initial encounter; V49.40XA Driver injured in collision with unspecified motor vehicles in traffic accident, initial encounter; Y92.410 Unspecified street and highway as the place of occurrence of the external cause; F17.200 Nicotine dependence, unspecified, uncomplicated; Z88.0 Allergy status to penicillin; Z91.040 Latex allergy status; Z91.048 Other nonmedicinal substance allergy status; Z79.899 Other long term (current) drug therapy
CPT/HCPCS: 72128; 72131; 96372; 99283; J1885

== ENCOUNTER 2020-11-17 10:57 | Emergency (ER) | payer OTHER ==
[~2020-11-17] VITALS: Ht 167.6 cm; Wt 84.1 kg
[~2020-11-17 10:57] MED LIST changes: +COLC0.6T47 PO; -COLC1TAB13 PO; +ESCI10TA16; -ESCI10TA2; +ROBA750T4 PO
[2020-11-17 12:08] LABS: BASO # 0.1 10^3/uL (0.0-0.2); BASO % 0.5 % (0.0-1.0); EOS # 0.3 10^3/uL (0.0-0.5); EOS % 2.1 % (0.0-3.0); HEMATOCRIT 44.8 % (36.0-47.0); HEMOGLOBIN 14.6 g/dl (12.0-15.5); LYMPH # 3.4 10^3/uL (1.5-5.0); LYMPH % 28.3 % (24.0-44.0); MEAN CORPUSCULAR HEMOGLOBIN 29.7 pg (27.0-33.0); MEAN CORPUSCULAR HGB CONC 32.6 g/dl (32.0-36.5); MEAN CORPUSCULAR VOLUME 91.2 fl (80.0-96.0); MONO # 0.6 10^3/uL (0.0-0.8); MONO % 4.8 % (2.0-8.0); NEUTROPHILS # 7.6 10^3/uL (1.5-8.5); PLATELET COUNT, AUTOMATED 381 10^3/uL (150-450); RED BLOOD COUNT 4.91 10^6/uL (4.00-5.40); WHITE BLOOD COUNT 11.9 10^3/uL (4.0-10.0)
[2020-11-17 12:27] LABS: ALBUMIN 3.9 GM/DL (3.2-5.2); ALT/SGPT 17 U/L (12-78); BILIRUBIN,DIRECT < 0.1 MG/DL (0.0-0.2); BILIRUBIN,TOTAL 0.3 MG/DL (0.2-1.0); LIPASE 278 U/L (73-393); TOTAL PROTEIN 7.2 GM/DL (6.4-8.2)
[2020-11-17] MEDS ORDERED: KETOROLAC 30 MG/ML 1ML VIAL IV ONE (13:30)
[2020-11-17] MEDS ORDERED: cefTRIAXone SOD 1 GM in D5W MINI-BAG PLUS 50 ML IV ONE (13:30)
[2020-11-17] MEDS ORDERED: NS 1,000 ML IV ONE (13:30)
[2020-11-17] MEDS ORDERED: ISOVUE-370 76% 100ML VIAL As Ordered ONE (13:51)
--- NOTE | 2020-11-17 14:57 | REP ---
INDICATION: eval for pyelonephritis COMPARISON: 12/05/2015. TECHNIQUE: CT Scan of the abdomen and pelvis was performed with intravenous administration of 100 cc of Isovue 370, without oral contrast. Sagittal and coronal reconstruction images are performed. FINDINGS: Lung bases: There are minor bibasilar fibrotic changes. Liver: Liver is enlarged, with a length of approximately 20 cm. There is relatively low density diffusely throughout the liver suggesting diffuse fatty infiltration. Ill-defined hyperdensity in the right lobe of the liver and at the gallbladder fossa appear similar to the prior exam in 2016 and probably represent areas of spared parenchyma. Two rounded areas of relative hyperdensity in the peripheral left lobe of the liver have slightly increased in size since that time, and there is a rounded hyperdensity also seen in the right lobe of the liver medially, increased in size since the prior exam, measuring approximately 2.8 cm in diameter. I suspect these also represent areas of parenchymal sparing. Gallbladder: Unremarkable. Spleen: Normal. Adrenals: Normal. Pancreas: Normal. Kidneys: There is a 1.9 cm cyst in the lower left kidney.. No other parenchymal abnormality is seen. There is no hydronephrosis bilaterally. Small and large bowel: Unremarkable. Free fluid: None. Abdominal aorta: No aneurysm or dissection. Adenopathy: None. Appendix: Prior appendectomy. Osseous structures: Unremarkable. Pelvis: Prior hysterectomy. There is a cystic structure of the right ovary 4 cm in diameter. There is a cystic structure of the left ovary 6.6 x 4.8 cm. IMPRESSION: Hepatomegaly with suspected fatty infiltration. Scattered hyperdensities throughout the liver as discussed in detail above are felt to represent areas of parenchymal sparing. These were present on the prior study in 2016, and have increased in size since that time. Left renal cyst. No other renal abnormality identified. Bilateral ovarian cysts. Recommend pelvic ultrasound to further evaluate. No adenopathy or free fluid. <Electronically signed by River Reynolds > 11/17/20 [id number]
--- NOTE | 2020-11-17 16:25 | REP ---
INDICATION: bruce ovarian cysts noted, RLQ abd pain, eval for torsion. COMPARISON: Abdomen/pelvis CT performed earlier this same date. TECHNIQUE: Transabdominal, endovaginal and Doppler assessment of the pelvis. FINDINGS: Patient has had a hysterectomy. Bilateral ovarian cysts are identified by CT or earlier today. These were not present on a prior pelvic ultrasound dated 06/06/2012. The uterus is surgically absent. Right ovary: The right ovary contains a complex cyst measuring 4.7 x 4.2 x 9.3 cm. Including this cyst the right ovary is enlarged overall measuring 5.0 x 3.9 x 4.2 cm. With doppler assessment there is right ovarian vascular flow with the resistive index in the intraparenchymal arteries measuring 0.44. Left ovary: There is a large left ovarian cyst measuring 6.1 x 4.7 x 5.3 cm. This cyst contains a septation. Including this cyst the left ovary is enlarged overall measuring 7.8 x 5.6 x 5.3 cm. This large left ovarian cyst effaces the ovarian tissue and we are unable to obtain Doppler assessment of the left ovarian tissue IMPRESSION: There are large bilateral ovarian cysts as described. The uterus is surgically absent. <Electronically signed by River Dixon > 11/17/20 [id number]
[2020-11-17] MEDS ORDERED: NAPR-837 PO (17:11)
[2020-11-17] MEDS ORDERED: HYDR-3713 PO (17:11)
[2020-11-17] MEDS ORDERED: ONDA4TAB6 PO (17:13)
[2020-11-17 17:40] VITALS: BP 130/77
--- NOTE | 2020-11-18 06:44 | ED PDOC ---
Post-Departure Follow-Up pelvic us faxed to dr silver and Alicia Del Toro MD Nov 18, 2020 06:44
== END 2020-11-17 17:57 | disposition home or self-care (01) ==
LOC: M ED 10:57
DX: N83.201 Unspecified ovarian cyst, right side (principal); N83.202 Unspecified ovarian cyst, left side; N28.1 Cyst of kidney, acquired; R16.0 Hepatomegaly, not elsewhere classified; Z90.710 Acquired absence of both cervix and uterus; K51.90 Ulcerative colitis, unspecified, without complications; G43.909 Migraine, unspecified, not intractable, without status migrainosus; G47.30 Sleep apnea, unspecified; F17.200 Nicotine dependence, unspecified, uncomplicated; Z88.0 Allergy status to penicillin; Z91.040 Latex allergy status; Z91.048 Other nonmedicinal substance allergy status; Z79.899 Other long term (current) drug therapy
CPT/HCPCS: 74177; 76830; 76856; 80047; 80076; 81001; 83690; 84702; 85025; 87088; 87186; 93976; 96365; 96375; 99283; J0696; J1885; Q9967

== ENCOUNTER → 2020-12-25 | Outpatient (CLI) | payer OTHER ==
[~2020-12-25] MED LIST changes: +HYDR-3713 PO; +ONDA4TAB6 PO
--- NOTE | 2020-12-25 10:47 | REP ---
INDICATION: N83.209 BENIGN OVARY CYST. COMPARISON: 11/17/2020. TECHNIQUE: Transabdominal and transvaginal scanning performed. FINDINGS: There has been a prior hysterectomy. The bladder measures 7.7 x 5.3 x 7.9cm. The right ovary has dimensions of 2.5 x 2.1 x 1.7 cm. It's Doppler flow is normal with a resistive index of 0.52. The left ovary dimensions are 6.5 x 3.8 x 4.6 cm. It's Doppler flow was normal with resistive index of 0.75. A simple anechoic paraovarian cyst on the right measures 2.7 x 2.2 x 2.2 cm. The previously noted complex right ovarian cyst has resolved. A cyst of the left ovary measures 5.8 x 4.5 x 4.0 cm this is unchanged in size. There is a peripheral septation which does not appear to be significantly thickened. In addition, a tubular cystic structure in the left adnexa probably represents hydrosalpinx measuring 2.2 x 1.2 x 1.9 cm. No free fluid is seen in the cul-de-sac. IMPRESSION: Complex right ovarian cyst has resolved. Persistent left ovarian cyst unchanged in size since the prior exam. Left hydrosalpinx suspected. Recommend continued follow-up of the left ovarian cyst, ultrasound recommended in 6 weeks, alternatively further evaluation may be made with MRI. <Electronically signed by River Reynolds > 12/25/20 [id number]
== END ==
LOC: M WHC 08:30
PROVIDERS: ATTEND Obstetrics & Gynecology
DX: N83.202 Unspecified ovarian cyst, left side (principal)

== ENCOUNTER → 2021-04-01 | Outpatient (CLI) | payer OTHER ==
--- NOTE | 2021-04-01 10:54 | REP ---
INDICATION: OVARIAN CYST COMPARISON: 12/25/2020 TECHNIQUE: Transabdominal pelvic ultrasound followed by transvaginal examination for better evaluation of the endometrium and adnexa with color Doppler evaluation of the ovaries. FINDINGS: Bladder is unremarkable and measures 6.7 x 3.7 x 4.8 cm. Patient is noted to be status post hysterectomy. Right ovary is not visualized on either transabdominal or transvaginal imaging. A stable left adnexal cyst measures approximately 5.9 x 4.4 x 5.1 cm and again includes thin septation which may or may not be within the ovary itself. The parenchymal portion of the ovary measures roughly 3.0 x 1.7 x 2.0 cm (RI 0.60). IMPRESSION: No change to the left ovarian/adnexal cyst <Electronically signed by Dion Conte > 04/01/21 [id number]
== END ==
LOC: M WHC 09:21
PROVIDERS: ATTEND Obstetrics & Gynecology
DX: N83.209 Unspecified ovarian cyst, unspecified side (principal)